=== PATIENT | female | born 1990 | race Two or more races ===

== ENCOUNTER 2025-01-23 12:05 | Observation (INO) | payer MEDICAID, OTHER, SELFPAY ==
[2025-01-23] MEDS ORDERED: PREN1TAB71 OR (12:33)
--- NOTE | 2025-01-23 13:07 | DVH ---
BIOPHYSICAL PROFILE HISTORY: AMA Comparison Study: None TECHNIQUE: Multiple real-time grayscale sonographic images through the gravid uterus of the fetus wi th duplex Doppler color flow and M-mode spectral analysis FINDINGS: BIOPHYSICAL PROFILE: breathing score: 2 movement score: 2 tone score: 2 Quantitative OLIVER score: 2 (OLIVER: 10.5 Cm.) Total score: 8 The cervix is not visualized Single live fetus in cephalic presentation. heart rate 146 beats per minute. Anterior placenta without previa or abruption IMPRESSION: Biophysical profile score: 8
[2025-01-23 14:46] LABS: Urine Protein, UAD TRACE (Negative)
--- NOTE | 2025-01-24 09:52 | DVHDS2 ---
Physician Discharge Progress N Final Diagnosis: gdm,ama 38wks Operations or Procedures: Operations or Procedures nst reactive reviwed,sono Condition on Discharge: Good Disposition: Home Discharge Instructions: Diet: Regular Activity: No Restrictions, As Tolerated Medications: na Follow Up Care: Specialist: 2d for induction Discharge Statement: "Patient was advised to return to the ER or call 911 if any headaches, dizziness, shortness of breath, chest pain, abdominal pain, bleeding, fevers, or worsening of medical condition. Patient was counseled about treatment plan, medications, possible side effects, patientverbalized understanding. All questions were answered to the best of my ability. This discharge took greater then 30 minutes in planning, reviewing documentation, counseling the patient, and discussing with other team members." Visit Coding OBGYN Date of Service: Jan 23, 2025 Billing Provider: GENTRY DORADO DO MARKETING REPRESENTATIVE Common Visit Codes: 81412-UMXARSE OBS CARE (HIGH) MARKETING REPRESENTATIVE Procedure Codes: 04835-38- NON-STRESS TEST GENTRY DORADO DO Jan 24, 2025 09:52
== END 2025-01-23 14:18 | disposition home or self-care (01) ==
LOC: LDRP 12:05
PROVIDERS: ADMIT Obstetrics & Gynecology; ATTEND Obstetrics & Gynecology
DX: O24.419 Gestational diabetes mellitus in pregnancy, unspecified control (principal); Z3A.38 38 weeks gestation of pregnancy; Z98.890 Other specified postprocedural states
CPT/HCPCS: 76818; 81001; 81002; 82948; 82962; 94760; G0378; 59025; 76819

== ENCOUNTER 2025-01-25 17:54 | Inpatient (IN) | payer SELFPAY ==
[~2025-01-25] VITALS: Ht 170.2 cm; Wt 81.6 kg
[~2025-01-25 17:54] MED LIST: PREN1TAB71 OR
[2025-01-25] MEDS ORDERED: BUTORPHANOL TARTRATE 2 MG/1 ML VIAL IV PRN ×2 (18:15)
[2025-01-25] MEDS ORDERED: LIDOCAINE 2%HCL (LOCAL ANESTH.) INJ 20ML MDV IJ PRN (18:15)
[2025-01-25 18:48] LABS: Hematocrit 34.5 % (36.0-46.0); Hemoglobin 12.1 g/dL (12.2-16.2); Mean Corpuscular Hemoglobin 31.2 pg (28.0-32.0); Mean Corpuscular Volume 89.0 fL (80.0-100.0); Nucleated Red Blood Cells % 0.1 %
[2025-01-25 19:01] LABS: INR 0.94 (0.9-1.15); Partial Thromboplastin Time 27.6 SEC (24.5-34.5); Prothrombin Time 10.0 sec (9.3-11.8)
[2025-01-25 19:06] LABS: Alanine Aminotransferase 14 U/L (7-40); Albumin 3.9 g/dL (3.2-4.8); Anion Gap 13 (5-15); BUN/Creatinine Ratio 9.5 (10.0-20.0); Bilirubin, Total 0.3 mg/dL (0.2-1.0); Calcium 9.0 mg/dL (8.7-10.4); Chloride 107 mmol/L (98-107); Potassium 3.9 mmol/L (3.5-5.1); Sodium 138 mmol/L (136-145); Total Protein 6.6 g/dL (5.7-8.2)
[2025-01-25 19:08] LABS: Amphetamine Screen, Urine Neg (NEGATIVE); Barbiturate Scree,Urine Neg (NEGATIVE); Benzodiazephine Screen, Urine Neg (NEGATIVE); Cannabinoid Screen, Urine Neg (NEGATIVE); Cocaine Screen, Urine Neg (NEGATIVE); Opiate Scree,Urine Neg (NEGATIVE); Phencyclidine Screen, Urine Neg (NEGATIVE)
[2025-01-25 19:08] LABS: Alkaline Phosphatase 179 U/L (46-116); Blood Urea Nitrogen 7 mg/dL (9-23); Carbon Dioxide 18 mmol/L (20-31); Glucose 131 mg/dL (74-106)
--- NOTE | 2025-01-25 19:53 | DVH ---
OB ULTRASOUND, LIMITED CLINICAL INDICATION: Presenting part/Induction TECHNIQUE: Multiple grayscale ultrasound and M-mode images were obtained of the pelvis for evaluation of intrauterine . COMPARISON: US BIOPHYSICAL PROFILE on DOS: 01/23/25 FINDINGS /impression: Intrauterine fetus is in cephalic presentation.
[2025-01-25] MEDS: PHISODERM TOP SOLN 240ML BTL TOP PRN (20:00)
[2025-01-25] MEDS: DERMOPLAST 60ML BOTTLE TOP PRN (20:00)
[2025-01-25] MEDS: WITCH HAZEL-GLYCERIN PAD TOP PRN (20:00)
[2025-01-25] MEDS: LACTATED RINGER'S 1,000 ML IV SCH (20:01)
[2025-01-25] MEDS: ceFAZolin 1GM/50ML 50 ML IV SCH (23:33)
[2025-01-25] MEDS: ceFAZolin 1GM/50ML 50 ML IV ONE (23:34)
[2025-01-26] MEDS ORDERED: TERBUTALINE SULFATE 1 MG/ML 1ML VIAL SC PRN (01:30)
[2025-01-26] MEDS: LACT. RINGERS/OXYTOCIN 20UNITS 1,000 ML IV SCH (02:01)
[2025-01-26 02:16] LABS: Urine Protein, UAD Negative (Negative)
[2025-01-26] MEDS: NALOXONE HCL 0.4 MG/ML VIAL IV ONE (03:15)
[2025-01-26] MEDS: ROPIVACAINE HCL 100 ML ONE (04:44)
[2025-01-26] MEDS: LIDOCAINE HCL 2 %PF INJ 10ML AMP IJ ONE (04:46)
[2025-01-26] MEDS: LACTATED RINGER'S 1,000 ML IV ONE (04:47)
--- NOTE | 2025-01-26 06:27 | DVHHP2 ---
OB CC & HPI Date Date of Admission: Jan 26, 2025 Patient Identification: : 4 Para: 3 EDC: Feb 03, 2025 Chief Complaints: Reason for admission: induction of labor Indication for induction: medical complication, other (GDM A1 advanced maternal age) Other reason for admission: That she sacral GDM advanced maternal age Admission Nurse Assessment Rev: Yes Past Medical History Cardiac: No pertinent Hx Pulmonary: No pertinent Hx Central Nervous System: No pertinent Hx GI: No pertinent Hx Hemotology/Oncology: No pertinent Hx Hepatobiliary: No pertinent Hx Psychiatric: No pertinent Hx Musculoskeletal: No pertinent Hx Rheumotologic: No pertinent Hx Infectious Disease: No peritnent Hx ENT: No pertinent Hx Renal/: No pertinent Hx Endocrine: No pertinent Hx Dermatology: No pertinent Hx Past Surgical History: No pertinent Hx OB History OB History Care: Limited Care Ultrasounds: Normal mid trimester US Obstetrical Complications: Gestational Diabetes, Other (AMA) Medical Complications: None Allergies: Coded Allergies: NO KNOWN ALLERGIES (Unverified , 01/25/25) Home Meds Reported Medications Vit W/ Ferrous Fumara (PNV PLUS MULTIVI) Plus Tab, 1 OR, TAB 01/23/25 Current Medications Current Medications Medications (Trade) Dose Ordered Sig/[place] Route PRN Reason Start Time Stop Time Status Last Admin Lactated Ringer's 1,000 ml @ 125 mls/hr Q8H IV 01/25/25 18:15 01/25/25 20:01 Valeriy Turner (Tucks) 1 pad PRN PRN TOP PERINEAL AREA DISCOMFORT 01/25/25 18:15 01/25/25 20:00 Sodium Lauryl Sulfate (Phisoderm) 240 ml PRN PRN TOP PERINEAL AREA DISCOMFORT 01/25/25 18:15 01/25/25 20:00 Benzocaine (Dermoplast) 1 applic PRN PRN TOP PERINEAL AREA DISCOMFORT 01/25/25 18:15 01/25/25 20:00 Butorphanol Tartrate (Stadol Injection) 1 mg Q4HPRN PRN IV MODERATE PAIN (4-6 PAIN SCALE) 01/25/25 18:15 Butorphanol Tartrate (Stadol Injection) 2 mg Q4HPRN PRN IV SEVERE PAIN (7-10 PAIN SCALE) 01/25/25 18:15 Lidocaine HCl (Xylocaine) 20 ml ONCE PRN IJ PERINEAL AREA DISCOMFORT 01/25/25 18:15 Misoprostol (Cytotec) 50 mcg Q4HPRN PRN PO CERVICAL RIPENING 01/25/25 19:15 01/25/25 20:00 Cefazolin Sodium 50 ml @ 100 mls/hr Q12HR IV 01/26/25 10:00 01/25/25 23:33 Oxytocin 1,000 ml @ 3 ml/hr Q24H IV 01/26/25 01:30 01/26/25 02:01 Terbutaline Sulfate (Brethine Inj) 0.25 mg ONCE PRN SC Uterine tachysystole 01/26/25 01:30 Family & Social History Family/Social History Blood Type: O+ Rubella: not immune RPR/VDRL: Negative GBS Status: Negative HBsAG: Negative Review of Systems Constitutional: No symptom reported Ears, Nose, & Throat: No symptom reported Eyes: No symptom reported Pulmonary/Respiratory: No symptom reported Cardiovascular: No symptom reported Gastrointestinal: No symptom reported Genitourinary: No symptom reported Musculoskeletal: No symptom reported Skin: No symptom reported Psychiatric: No symptom reported Endocrine: No symptom reported Hemotologic/Lymphatic: No symptom reported OB Admission Exam Physical Exam HEENT: TMs Normal, Fontanelles Normal, Nasal Mucosa Normal, Eyes non-injected, Oropharynx Normal, PERRLA, Moist Membranes, EOMI Heart: Rhythm Normal Lungs: Clear Abdomen: Gravid Extremities: Normal Reflexes: Normal Cervical Dilatation: 9cm Effacement: 100% Station: 0 Membranes: Intact Heart Rate: 140's Accelerations: Accelerations Present Decelerations: No Decelerations Short Term Variability: Present Eap Counselor Variability: Average (6-25) Contractions on Admission: 6-10 Minutes Apart Intensity: Mild OB Plan Plan Admitting Diagnosis: Induction of labor for AMA38+ wks Plan: Induction Other Plan: cytotec Visit Coding OBGYN Date of Service: Jan 25, 2025 Billing Provider: BRIEN MAYO DO BAND EDGER Common Visit Codes: 59957-GTK/OBS SAME DATE (HIGH) BAND EDGER Procedure Codes: 72760-GFW DELIVERY ONLY BRIEN MAYO DO Jan 26, 2025 06:27
--- NOTE | 2025-01-26 06:30 | LDN2 ---
Labor and Delivery Note Date 01/26/25 Age 34 4 Para 3 AB 0 EDC ThreeOct 0-baby EGA 38 6/7 Diagnosis Induction AMA GDMA1 Vaginal Delivery: VTX Vacuum Assisted: No Placenta: Spontaneous Sex: Male Weight pnd Apgars 9/9 Nuchal Cord Transected: No Amniotic Fluid: Clear Anesthesia epidural Episiotomy: No Extension: Yes Repaired with 2-0 chromic EBL 300cc Labs Blood Bank 01/25/25 18:26: Blood Type O POSITIVE Complications none Conditions stable Transfusion Aide none present Visit Coding OBGYN Date of Service: Jan 26, 2025 Billing Provider: BRIEN MAYO DO LABOR ECONOMICS TEACHER Common Visit Codes: 28828-OBU/OBS SAME DATE (HIGH) LABOR ECONOMICS TEACHER Procedure Codes: 18251-NBLQF OB CARE,VAG DELIVERY BRIEN MAYO DO Jan 26, 2025 06:30
[2025-01-26] MEDS ORDERED: ACETAMINOPHEN 325 MG TAB PO PRN (09:00)
[2025-01-26] MEDS: LACT. RINGERS/OXYTOCIN 20UNITS 500 ML IV ONE (09:29)
[2025-01-26 09:33] VITALS: RESP 17; O2SAT 98
[2025-01-26] MEDS: IBUPROFEN 600 MG TAB PO PRN (09:44)
[2025-01-26 15:00] VITALS: BP 108/70; PULSE 60; RESP 17; TEMP 98.6; O2SAT 97
[2025-01-26 19:00] VITALS: BP 101/58; PULSE 62; RESP 14; TEMP 98.4; O2SAT 97
[2025-01-26] MEDS: DOCUSATE SOD 100 MG CAP PO SCH (21:27)
[2025-01-26 23:00] VITALS: BP 97/55; PULSE 65; RESP 14; TEMP 97.8; O2SAT 98
[2025-01-27 03:30] VITALS: BP 97/55; PULSE 53; RESP 14; TEMP 98; O2SAT 95
--- NOTE | 2025-01-27 05:46 | DVHPN2 ---
Chief Complaints Patient reports: No new complaints, Feels better, Other (Patient ambulating tolerating her diet minimal lochia no pain) Nursing reports: No new complaints, No abdominal pain, No chest pain, No dizziness, No cough Objective Vitals Vital Signs Date Time Temp Pulse Resp B/P (MAP) Pulse Ox O2 Delivery O2 Flow Rate FiO2 01/27/25 03:30 98.0 53 14 97/55 (69) 95 98.0 01/26/25 19:00 Room Air Medications Current Medications Medications (Trade) Dose Ordered Sig/[place] Route PRN Reason Start Time Stop Time Status Last Admin Acetaminophen (Tylenol Tablet) 650 mg Q4HP PRN PO MILD PAIN (1-3 PAIN SCALE) 01/26/25 09:00 Docusate Sodium (Colace Capsule) 200 mg HS PO 01/26/25 22:00 01/26/25 21:27 Ibuprofen (Motrin Tablet) 600 mg Q6HP PRN PO MODERATE PAIN (4-6 PAIN SCALE) 01/26/25 09:00 01/26/25 21:27 General: Normal Neck: Normal Lungs: Normal Cardiovascular: Normal Abdominal: Normal (Uterus 12 week size firm) Musculoskeletal: Normal Extremities: Normal Skin: Normal Neurological: Normal Studies Laboratory Tests 01/25/25 18:26 Test 01/25/25 18:26 Range/Units Serum Glucose 131 H 74-106 mg/dL Ass/Plan Assessment stable improved requesting discharge home Plan [place] BRIEN Mckeon DO Jan 27, 2025 05:46
--- NOTE | 2025-01-27 05:50 | DVHDS2 ---
Discharge Summary Date of Admission Jan 25, 2025 at 17:54 Date of Discharge: Jan 27, 2025 Admitting Diagnosis TMA wound induction Dasha Wounds: Late care; first-degree bilateral L2 posterior laceration Labs/Diagnostic Data: Laboratory Results Test 01/25/25 23:54 01/25/25 18:40 01/25/25 18:26 POC Glucose 101 mg/dl (70-106) Urine Color Light-yellow (Yellow) Urine Clarity Clear (Clear) Urine pH 5.5 (5.0-9.0) Urine Specific [place] 1.011 (1.001-1.035) Urine Protein Negative (Negative) Urine Ketones Negative (Negative) Urine Blood Negative /uL (Negative) Urine Nitrite Negative (Negative) Urine Bilirubin Negative (Negative) Urine Urobilinogen Normal mg/dL (Negative) Urine Leukocyte Esterase 1+ /uL (Negative) Urine RBC 3 /hpf (0 - 4) Urine Microscopic WBC < 1 /HPF (0-5) Urine Squamous Epithelial Cells Few /hpf (<5) Urine Bacteria None seen /hpf (None Seen) Urine Glucose Normal mg/dL (Normal) Urine Opiates Screen Neg (NEGATIVE) Urine Fentanyl Screen Neg (NEGATIVE) Urine Barbiturates Screen Neg (NEGATIVE) Urine Phencyclidine Screen Neg (NEGATIVE) Urine Amphetamines Screen Neg (NEGATIVE) Urine Benzodiazepines Screen Neg (NEGATIVE) Urine Cocaine Screen Neg (NEGATIVE) Urine Cannabinoids Screen Neg (NEGATIVE) White Blood Count 6.4 10^3/uL (4.4-10.8) Red Blood Count 3.88 10^6/uL (4.0-5.20) Hemoglobin 12.1 g/dL (12.2-16.2) Hematocrit 34.5 % (36.0-46.0) Mean Corpuscular Volume 89.0 fL (80.0-100.0) Mean Corpuscular Hemoglobin 31.2 pg (28.0-32.0) Mean Corpuscular Hemoglobin Concent 35.0 g/dL (32.0-36.0) Red Cell Distribution Width 13.8 % (11.8-14.3) Platelet Count 214 10^3/uL (140-450) Mean Platelet Volume 9.1 fL (6.9-10.8) Neutrophils (%) (Auto) 60.4 % (37.0-80.0) Lymphocytes (%) (Auto) 31.5 % (10.0-50.0) Monocytes (%) (Auto) 7.3 % (0.0-12.0) Eosinophils (%) (Auto) 0.5 % (0.0-7.0) Basophils (%) (Auto) 0.3 % (0.0-2.0) Neutrophils # (Auto) 3.9 10 ^3/uL (1.6-8.6) Lymphocytes # (Auto) 2.0 10 ^3/uL (0.4-5.4) Monocytes # (Auto) 0.5 10 ^3/uL (0-1.3) Eosinophils # (Auto) 0 10 ^3/uL (0-0.8) Basophils # (Auto) 0 10 ^3/uL (0-0.2) Nucleated Red Blood Cells 0.1 % Prothrombin Time 10.0 sec (9.3-11.8) Prothrombin Time INR 0.94 (0.9-1.15) Activated Partial Thromboplast Time 27.6 SEC (24.5-34.5) Sodium Level 138 mmol/L (136-145) Potassium Level 3.9 mmol/L (3.5-5.1) Chloride Level 107 mmol/L (98-107) Carbon Dioxide Level 18 mmol/L (20-31) Anion Gap 13 (5-15) Blood Urea Nitrogen 7 mg/dL (9-23) Creatinine 0.74 mg/dL (0.550-1.02) Glomerular Filtration Rate Calc 107 mL/min (>90) BUN/Creatinine Ratio 9.5 (10.0-20.0) Serum Glucose 131 mg/dL (74-106) Calcium Level 9.0 mg/dL (8.7-10.4) Total Bilirubin 0.3 mg/dL (0.2-1.0) Aspartate Amino Transferase (AST) 21 U/L (13-40) Alanine Aminotransferase (ALT) 14 U/L (7-40) Alkaline Phosphatase 179 U/L (46-116) Total Protein 6.6 g/dL (5.7-8.2) Albumin 3.9 g/dL (3.2-4.8) Treponema pallidum Antibody Non-reactive (Negative) Hepatitis C Antibody Negative (Negative) Other Laboratory Tests 01/25/25 18:26 Brief Hx & Hospital Course: Patient responded well to Cytotec when it to active labor delivered without sequela. Consults/Reason for consult None Operations or Procedures None Condition at Discharge: Good Final Diagnosis/Problems List Status post Discharge Disposition: Home (Stable improved) Discharge Instruct/Medications Diet: Regular Miscellaneous Medications Vit W/ Ferrous Fumara (Pnv Plus Multivi), 1 OR, (Reported) Discharge Statement: "Patient was advised to return to the ER or call 911 if any headaches, dizziness, shortness of breath, chest pain, abdominal pain, bleeding, fevers, or worsening of medical condition. Patient was counseled about treatment plan, medications, possible side effects, patientverbalized understanding. All questions were answered to the best of my ability. This discharge took greater then 30 minutes in planning, reviewing documentation, counseling the patient, and discussing with other team members." ASSESSMENT ASSESSMENT Hospital Course stable improved GDM A1 discharge home carbohydrate limited diet Assessment Stable improved discharged home see discharge summary she discharge or Visit Coding OBGYN Date of Service: Jan 27, 2025 Billing Provider: BRIEN MAYO DO OUTBOARD MOTORS EXPERIMENTAL MECHANIC Common Visit Codes: 95911-KIU/OBS SAME DATE (LOW), 95252-QGB/OBS SAME DATE (MOD), 23548-LIL/OBS SAME DATE (HIGH) OUTBOARD MOTORS EXPERIMENTAL MECHANIC Procedure Codes: 01832-FJQYY OB CARE,VAG DELIVERY BRIEN MAYO DO Jan 27, 2025 05:50
[2025-01-27 07:00] VITALS: BP 98/57; PULSE 60; RESP 16; TEMP 98; O2SAT 98
[2025-01-27 12:01] VITALS: BP 98/57; PULSE 61; RESP 17; TEMP 98.5; O2SAT 98
== END 2025-01-27 13:00 | disposition home or self-care (01) | DRG 807 ==
LOC: LDRP 17:54
PROVIDERS: ADMIT Obstetrics & Gynecology; ATTEND Obstetrics & Gynecology
PROC: 10E0XZZ Delivery of Products of Conception, External Approach (ICD-10-PCS; principal; 2025-01-26)
PROC: 0HQ9XZZ Repair Perineum Skin, External Approach (ICD-10-PCS; 2025-01-26)
PROC: 3E0R3BZ Introduction of Anesthetic Agent into Spinal Canal, Percutaneous Approach (ICD-10-PCS; 2025-01-26)
PROC: 00HU33Z Insertion of Infusion Device into Spinal Canal, Percutaneous Approach (ICD-10-PCS; 2025-01-26)
DX: O24.410 Gestational diabetes mellitus in pregnancy, diet controlled (principal); Z37.0 Single live birth; Z3A.38 38 weeks gestation of pregnancy; O70.0 First degree perineal laceration during delivery
CPT/HCPCS: 36415; 59025; 59409; 62282; 76815; 80053; 80307; 81001; 81002; 82948; 82962; 85025; 85610; 85730; 86780; 86803; 86850; 86900; 86901; 94760; 94762; 96360; 96361; 96365; 96366; G0378; J2590